=== PATIENT | female | born 1970 | race Caucasian/White ===

== ENCOUNTER 2017-07-03 19:38 | Emergency (ER) | payer SELFPAY ==
[~2017-07-03] VITALS: Ht 175.3 cm; Wt 93.0 kg
[2017-07-03] MEDS ORDERED: PERCOCET 5/31 TABLET PO (22:41)
[2017-07-03 23:15] VITALS: BP 129/80
== END 2017-07-03 23:32 | disposition home or self-care (01) ==
LOC: EDBD 19:38 → EME 19:38
DX: S82.001A Unspecified fracture of right patella, initial encounter for closed fracture (principal); V18.0XXA Pedal cycle driver injured in noncollision transport accident in nontraffic accident, initial encounter; Y93.55 Activity, bike riding; Y92.838 Other recreation area as the place of occurrence of the external cause
CPT/HCPCS: 73552; 73560; 73564; 73590; 99281; 99284